=== PATIENT | male | born 1945 | race Caucasian/White ===

== ENCOUNTER 2023-01-20 10:11 | Outpatient (OUT) | payer MEDICARE, SELFPAY ==
--- NOTE | 2023-01-20 10:15 | XR_ITS ---
The [address] [address] Patient Name: ROSY PEREIRA MRN: [id number] date: 1945 Sex: M Assigned Patient Location: RAD Current Patient Location: [facility] Accession/Order Number: [id number] Exam Date: 01/20/2023 10:20 Report Date: 01/20/2023 13:07 At the request of: NON-STAFF PHYSICIAN Procedure: XR hip RT min 2V PROCEDURE: XR hip RT min 2V HISTORY: Right hip pain M25.551 COMPARISON: None. FINDINGS: BONES:Tiny degenerative osteophytes along the articular margins of the femoral head. No fracture, dislocation, articular surface irregularity. No significant joint space narrowing. Prominent degenerative osteophytes along superior rim of acetabulum. SOFT TISSUES:No visible soft tissue swelling. EFFUSION:None visible. OTHER: Negative. XR/XR hip RT min 2V IMPRESSION: 1. 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 2. No acute bone abnormality. Electronically authenticated by: CHHAYA LACY Date: 01/20/2023 13:07
== END 2023-01-20 10:12 | disposition home or self-care (01) ==
LOC: RAD 10:11
DX: M25.551 Pain in right hip (principal); M16.11 Unilateral primary osteoarthritis, right hip
CPT/HCPCS: 73502